=== PATIENT | female | born 1965 | race Caucasian/White ===

== ENCOUNTER 2019-01-09 09:18 | Outpatient (CLI) | payer BC ==
--- NOTE | 2019-01-09 10:11 | BD ---
DEXA BONE MINERAL DENSITY STUDY: HISTORY: Osteoporosis screening. COMPARISON: DEXA scan from 2013. FINDINGS: Lumbar Spine: BMD (g/cm2) L1 1.168 T-Score: 1.6 2.4 L2 1.133 T-Score: 1.0 1.9 L3 1.181 T-Score: 0.9 1.8 L4 1.256 T-Score: 1.8 2.8 L1-L4 1.186 T-Score: 1.2 2.2 WHO classification is normal. The bone mineral density has decreased from the comparison examination . Femoral Neck: 0.816 T-Score: -0.3 0.6 Total Femur: 1.027 T-Score: 0.7 1.3 WHO classification normal. Bone mineral density has decreased from the comparison examination. Impression: Normal bone mineral density. POS: CET
== END 2019-01-09 09:19 | disposition home or self-care (01) ==
LOC: BICMAMMO 09:18
PROVIDERS: ATTEND Specialist
DX: Z12.31 Encounter for screening mammogram for malignant neoplasm of breast (principal); Z13.820 Encounter for screening for osteoporosis
CPT/HCPCS: 77063; 77067; 77080